=== PATIENT | female | born 1985 | race Caucasian/White ===

== ENCOUNTER 2016-05-25 22:59 | Emergency (ER) | payer MEDICAID ==
[2016-05-25 23:06] VITALS: BP 122/83; PULSE 98; TEMP 97.9; O2SAT 100
[2016-05-25] MEDS ORDERED: Sodium Chloride 0.9% 1,000 ML IV ONE (23:36)
[2016-05-25] MEDS ORDERED: Naproxen 550 mg Tab PO STA (23:52)
[2016-05-26] MEDS ORDERED: Naproxen 550 mg Tab PO ONE (00:01)
--- NOTE | 2016-05-26 00:18 | C.PDOC ---
History Of Present Illness 30 y/o female presents to ED with complaint of left knee pain. Patient reports she felt a "pop" in her knee 2 weeks ago. She reports increasing pain on ambulation. Otherwise, denies any trauma, fall, new weakness, new numbness, or other associated symptoms. Patient notes she has been taking Motrin intermittently for pain but has not taken any in the past 2 days. Time Seen by Provider: 05/25/16 23:22 Chief Complaint (Nursing): Lower Extremity Problem/Injury History Per: Patient History/Exam Limitations: no limitations Onset/Duration Of Symptoms: Days Current Symptoms Are (Timing): Still Present Recent travel outside of the [place]: No Past Medical History Reviewed: Historical Data, Nursing Documentation, Vital Signs Vital Signs: Last Vital Signs Temp 97.9 F 05/25/16 23:01 Pulse 98 H 05/25/16 23:01 Resp 18 05/25/16 23:01 BP 122/83 05/25/16 23:01 Pulse Ox 100 05/26/16 00:19 - Medical History PMH: Migraine, Rheumatoid Arthritis Family History: States: Unknown Family Hx - Social History Hx Tobacco Use: No Hx Alcohol Use: No Hx Substance Use: No - Immunization History Hx Tetanus Toxoid Vaccination: Yes Hx Influenza Vaccination: No Hx Pneumococcal Vaccination: No Review Of Systems Except As Marked, All Systems Reviewed And Found Negative. Musculoskeletal: Positive for: Other (left knee pain) Skin: Negative for: Rash Neurological: Negative for: Weakness, Numbness Physical Exam - Physical Exam Appears: Non-toxic, No Acute Distress Skin: Warm, Dry Head: Atraumatic, Normacephalic Extremity: Tenderness (minimal, left knee), Capillary Refill (< 2 sec. ), No Swelling, Other (No effusion or rashes to left knee) Extremity: Bilateral: Normal Color And Temperature Neurological/Psych: Oriented x3, Normal Motor, Normal Sensation Gait: Steady (with limp) ED Course And Treatment O2 Sat by Pulse Oximetry: 100 (RA) Pulse Ox Interpretation: Normal - Other Rad Left Knee X-Ray X-Ray: Interpreted by Me, Viewed By Me Interpretation: negative for fx or dislocation Progress Note: Treated with Naproxen. X-rays ordered and reviewed, negative for fx or dislocation. On reassessment, patient is resting comfortably, and is in no acute distress. Patient instructed to follow up with clinic/PMD within 1-2 days. 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 - Scribe Statement The provider has reviewed the documentation as recorded by the Rashel Reyes Provider Scribe Attestation: All medical record entries made by the Rashel were at my direction and personally dictated by me. I have reviewed the chart and agree that the record accurately reflects my personal performance of the history, physical exam, medical decision making, and the department course for this patient. I have also personally directed, reviewed, and agree with the discharge instructions and disposition.
[2016-05-26 00:27] VITALS: RESP 20
--- NOTE | 2016-05-26 08:19 | RAD ---
PROCEDURE: Left Knee Radiographs. HISTORY: Pain. COMPARISON: None. FINDINGS: BONES: Minimal inferior patellar spurring. No fracture. JOINTS: Normal. No osteoarthritis. JOINT EFFUSION: None. OTHER FINDINGS: None. IMPRESSION: Minimal inferior patellar spurring ; otherwise normal radiographs of the left knee.
== END 2016-05-26 00:26 | disposition home or self-care (01) ==
LOC: C.ER 22:59
DX: S83.92XA Sprain of unspecified site of left knee, initial encounter (principal); X58.XXXA Exposure to other specified factors, initial encounter; Y93.9 Activity, unspecified; Y92.9 Unspecified place or not applicable

== ENCOUNTER 2017-06-14 11:58 | Emergency (ER) | payer MEDICAID ==
[2017-06-14 12:08] VITALS: RESP 20
--- NOTE | 2017-06-14 12:32 | C.PDOC ---
History Of Present Illness 31yo female, with history of migraine headache, presents to ED with complaints of headache for the past day. She reports associated nausea and vomiting, denies taking any medication at home. She also has a history of rheumatoid arthritis but has not taken any medications for that. LMP was 2 weeks ago. No other complaints. Time Seen by Provider: 06/14/17 12:14 Chief Complaint (Nursing): Headache History Per: Patient History/Exam Limitations: no limitations Onset/Duration Of Symptoms: Days (1) Current Symptoms Are (Timing): Still Present Associated Symptoms: Photophobia, Nausea, Vomiting Past Medical History Reviewed: Historical Data, Nursing Documentation, Vital Signs Vital Signs: Last Vital Signs Temp 98.8 F 06/14/17 12:05 Pulse 114 H 06/14/17 12:05 Resp 20 06/14/17 12:05 BP 123/84 06/14/17 12:05 Pulse Ox 99 06/14/17 14:51 - Medical History PMH: Migraine, Rheumatoid Arthritis Denies: Chronic Kidney Disease Surgical History: No Surg Hx Family History: States: Unknown Family Hx - Social History Hx Tobacco Use: No Hx Alcohol Use: No Hx Substance Use: No - Immunization History Hx Tetanus Toxoid Vaccination: Yes Hx Influenza Vaccination: No Hx Pneumococcal Vaccination: No Review Of Systems Except As Marked, All Systems Reviewed And Found Negative. Constitutional: Negative for: Fever, Chills Eyes: Positive for: Other (photophobia) Gastrointestinal: Positive for: Nausea, Vomiting Neurological: Positive for: Headache Physical Exam - Physical Exam Appears: Non-toxic, No Acute Distress Skin: Normal Color, Warm, Dry Head: Atraumatic, Normacephalic Eye(s): bilateral: Normal Inspection, PERRL, EOMI Neck: Normal ROM, Supple Chest: Symmetrical Cardiovascular: Rhythm Regular Respiratory: Normal Breath Sounds Extremity: Normal ROM Neurological/Psych: Oriented x3, Normal Speech, Normal Cognition, Normal Cranial Nerves, Normal Motor, Normal Sensation ED Course And Treatment O2 Sat by Pulse Oximetry: 99 (RA) Pulse Ox Interpretation: Normal Progress Note: Treated with IVF NSS, reglan and toradol with improvement. On re -evaluation neuro intact. ambulating with steady gait Reassessment Condition: Improved Medical Decision Making Medical Decision Making: Plan: -- IV Fluids -- Reglan 10mg IV -- Toradol 30mg IVP Disposition Counseled Patient/Family Regarding: Studies Performed, Diagnosis, Need For Followup, Rx Given - Disposition Referrals: Sander Guaj[facility] [employer] [Outside] [facility] [Outside] Disposition: HOME/ ROUTINE Disposition Time: 15:00 Condition: IMPROVED Additional Instructions: Follow up with your PMD for further evaluation Prescriptions: Naproxen [Naprosyn] 1 tab PO BID PRN #25 tab PRN Reason: Pain Instructions: Migraine Headache (DC) Forms: [employer] (Micronesian) - POA Present On Arrival: None - Clinical Impression Clinical Impression: Migraine - 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 - Scribe Statement The provider has reviewed the documentation as recorded by the Scribe (Margaret Brady) Provider Attestation: All medical record entries made by the Scribe were at my direction and personally dictated by me. I have reviewed the chart and agree that the record accurately reflects my personal performance of the history, physical exam, medical decision making, and the department course for this patient. I have also personally directed, reviewed, and agree with the discharge instructions and disposition.
[2017-06-14] MEDS ORDERED: Sodium Chloride 0.9% 1,000 ML ONE (13:24)
[2017-06-14] MEDS: Sodium Chloride 0.9% 1,000 ML IV ONE (13:30)
[2017-06-14 15:30] VITALS: BP 106/70; PULSE 106; TEMP 98.7; O2SAT 98
== END 2017-06-14 15:33 | disposition home or self-care (01) ==
LOC: C.ER 11:58
DX: G43.909 Migraine, unspecified, not intractable, without status migrainosus (principal)
CPT/HCPCS: 96361; 96374; 96375; 99285; J1885; J2765; J7040

== ENCOUNTER 2017-07-05 09:56 | Emergency (ER) | payer MEDICAID ==
[2017-07-05 10:14] VITALS: TEMP 99.6
[2017-07-05] MEDS ORDERED: Belladonna-Phenobarbital PO STA (10:37)
[2017-07-05] MEDS ORDERED: Sodium Chloride 0.9% 1,000 ML IV ONE (10:37)
[2017-07-05] MEDS ORDERED: Aluminum Hydroxide/Magnesium Hydroxide Susp (30 mL) PO STA (10:37)
--- NOTE | 2017-07-05 10:37 | C.PDOC ---
History Of Present Illness 31-year-old female, presents to the emergency department with complaints of abdominal pain. Patient states she has been experiencing epigastric abdominal pain since 20:00 last night, after she ate chicken with rice, and coffee. Patient reports associated nausea, non-bloody/non-bilious vomiting, and watery/ non-bloody diarrhea. Patient denies fever, chills, recent travel, back pain, dizziness or any other associated symptoms. No other complaints at this time. Time Seen by Provider: 07/05/17 10:24 Chief Complaint (Nursing): Abdominal Pain History Per: Patient History/Exam Limitations: no limitations Onset/Duration Of Symptoms: Hrs Current Symptoms Are (Timing): Still Present Severity: Moderate Location Of Pain/Discomfort: Epigastric Past Medical History Vital Signs: Last Vital Signs Temp 99.6 F 07/05/17 10:14 Pulse 83 07/05/17 13:10 Resp 16 07/05/17 13:10 BP 116/77 07/05/17 13:10 Pulse Ox 100 07/05/17 13:10 - Medical History PMH: Migraine, Rheumatoid Arthritis Denies: Chronic Kidney Disease Family History: States: Unknown Family Hx - Social History Hx Tobacco Use: No Hx Alcohol Use: No Hx Substance Use: No - Immunization History Hx Tetanus Toxoid Vaccination: Yes Hx Influenza Vaccination: No Hx Pneumococcal Vaccination: No Review Of Systems Constitutional: Negative for: Fever Gastrointestinal: Positive for: Nausea, Vomiting, Abdominal Pain, Diarrhea. Negative for: Hematochezia Genitourinary: Negative for: Dysuria, Vaginal Discharge, Vaginal Bleeding Musculoskeletal: Negative for: Back Pain Neurological: Negative for: Weakness, Numbness, Headache, Dizziness Physical Exam - Physical Exam Appears: Non-toxic, No Acute Distress Skin: Normal Color, Warm, Dry, No Rash Head: Atraumatic, Normacephalic Eye(s): bilateral: Normal Inspection, EOMI Nose: Normal Oral Mucosa: Moist Lips: Normal Appearing Neck: Normal ROM Chest: Symmetrical Cardiovascular: Rhythm Regular, No Murmur Respiratory: Normal Breath Sounds, No Accessory Muscle Use Gastrointestinal/Abdominal: Soft, Tenderness (very mild tenderness to epigastric region), No Mass, No Distention, No Guarding, No Rebound, No Hernia Back: Normal Inspection, No CVA Tenderness Extremity: Normal ROM, No Deformity Neurological/Psych: Oriented x3, Normal Speech ED Course And Treatment - Laboratory Results Result Diagrams: 07/05/17 10:56 07/05/17 10:56 O2 Sat by Pulse Oximetry: 98 (RA) Pulse Ox Interpretation: Normal Medical Decision Making Medical Decision Making: Impression: abd pain, vomiting and diarrhea Plan: * Bloodwork * Pepcid, Maalox, Zofran, IVFs, * UA Progress: Labs reviewed and shows no leukocytosis or bands; no electrolyte abnormality. Xray shows Nonobstructive bowel gas pattern. Patient re-evaluated and reports feeling better. Abdomen is soft and nontender. She has no fever and stable vital signs. She was able to tolerate. Patient encouraged to rest and drink fluids. Recommend clear liquids and to progress as tolerated Disposition Counseled Patient/Family Regarding: Diagnosis, Need For Followup, Rx Given - Disposition Disposition: HOME/ ROUTINE Disposition Time: 13:10 Condition: GOOD Additional Instructions: Rx sent to [facility] Drink fluids to prevent dehydration. Take Zofran as prescribed. Try low-fat diet with increase in fluids such as sport drink, gelatin. Try soup, rice, bread , crackers, cereal, bananas to help with diarrhea. Prescriptions: Famotidine [Pepcid] 20 mg PO DAILY #20 tab Ondansetron ODT [Zofran ODT] 1 odt PO BID PRN #6 odt PRN Reason: Nausea/Vomiting Instructions: Viral Gastroenteritis, Adult (DC) Forms: [facility] (Lebanese), Work Excuse - POA Present On Arrival: None - Clinical Impression Clinical Impression: Gastroenteritis - Scribe Statement The provider has reviewed the documentation as recorded by the Scribe (Estelle Cruz) All medical record entries made by the Scribe were at my direction and personally dictated by me. I have reviewed the chart and agree that the record accurately reflects my personal performance of the history, physical exam, medical decision making, and the department course for this patient. I have also personally directed, reviewed, and agree with the discharge instructions and disposition.
[2017-07-05] MEDS ORDERED: Sodium Chloride 0.9% 1,000 ML ONE (10:47)
[2017-07-05] MEDS ORDERED: Aluminum Hydroxide/Magnesium Hydroxide Susp (30 mL) ONE (10:47)
[2017-07-05] MEDS ORDERED: Belladonna-Phenobarbital ONE (10:47)
[2017-07-05 10:58] LABS: HCG,QUALITATIVE URINE NEGATIVE (NEGATIVE)
[2017-07-05 11:01] LABS: BASO % 0.5 % (0.0-2.0); EOS % 0.3 % (0.0-4.0); HEMOGLOBIN 12.2 g/dL (11.0-16.0); LYMPH # 0.6 K/uL (1.0-4.3); LYMPH % 11.8 % (20.0-40.0); MEAN CELL VOLUME 80.7 fL (81.0-99.0); MEAN CORPUSCULAR HEMOGLOBIN 27.3 pg (27.0-31.0); MEAN CORPUSCULAR HGB CONC 33.8 g/dL (33.0-37.0); MEAN PLATELET VOLUME 8.2 fL (7.2-11.7); MONO # 0.3 K/uL (0.0-0.8); MONO % 4.8 % (0.0-10.0); NEUT # 4.6 K/uL (1.8-7.0); NEUT % 82.6 % (50.0-75.0); RBC 4.48 Mil/uL (3.80-5.20); RED CELL DISTRIBUTION WIDTH 14.2 % (11.5-14.5); WHITE BLOOD COUNT 5.5 K/uL (4.8-10.8)
[2017-07-05 11:09] LABS: SQUAMOUS EPITHIAL 4 /hpf (0-5); URINE BACTERIA RARE (<OCC); URINE BILIRUBIN NEGATIVE (NEGATIVE); URINE BLOOD 3+ (NEGATIVE); URINE CLARITY Clear (Clear); URINE COLOR Yellow (YELLOW); URINE GLUCOSE (UA) NORMAL (Normal); URINE LEUKOCYTE ESTERASE NEG Leu/uL (Negative); URINE PROTEIN 1+ mg/dL (NEGATIVE)
[2017-07-05 11:23] LABS: ALT/SGPT 13 U/L (9-52); AST/SGOT 26 U/L (14-36); BLOOD UREA NITROGEN 14 mg/dL (7-17); CALCIUM 8.7 mg/dl (8.6-10.4); GFR AFRICAN-AMERICAN > 60; GFR NON-AFRICAN AMERICAN > 60; LIPASE 36 U/L (23-300)
--- NOTE | 2017-07-05 11:33 | RAD ---
PROCEDURE: Radiographs of the chest and abdomen (obstructive series) HISTORY: upper abdominal pain COMPARISON: No prior. TECHNIQUE: AP radiograph of the chest, with upright and supine radiographs of the abdomen. FINDINGS: CHEST: Lungs: The lungs are well inflated and clear. Cardiovascular: Normal size heart. No pulmonary vascular congestion. Pleura: No pleural fluid. No pneumothorax. Other findings: None. ABDOMEN AND PELVIS: Bowel: The bowel gas pattern is nonspecific. No bowel dilatation or differential air-fluid levels. Free air: None. Bones: Unremarkable. Other findings: None. IMPRESSION: Nonobstructive bowel gas pattern. Clear lungs.
[2017-07-05 13:10] VITALS: BP 116/77; PULSE 83; RESP 16
[2017-07-05 16:23] VITALS: O2SAT 98
== END 2017-07-05 13:10 | disposition home or self-care (01) ==
LOC: C.ER 09:56
DX: K52.9 Noninfective gastroenteritis and colitis, unspecified (principal)
CPT/HCPCS: 74022; 80053; 81001; 83690; 84703; 85025; 96361; 96374; 99285; J2405; J7040